=== PATIENT | female | born 1985 | race Two or more races ===

== ENCOUNTER 2016-10-08 02:24 | Emergency (ER) | payer MEDICARE, MEDICAID ==
[2016-10-08] MEDS ORDERED: Ondansetron 8 MG Tab.DIS PO ONE (05:25)
[2016-10-08 05:53] VITALS: BP 131/90
--- NOTE | 2016-10-09 11:00 | ER ---
DATE SEEN: 10/08/2016 TIME SEEN: The patient was seen at 0224 hours. CHIEF COMPLAINT: Seizure. HISTORY OF PRESENT ILLNESS: This is a 30-year-old, (2 to 3 months ago) woman, who 2 hours ago was noted to have fallen to the floor with a large thud and noted by her , who came into the room, to have had seizures with tonic/clonic motion at home. She had mild neck discomfort. She had moderate headache. She was talking. Seizure lasted 35 to 45 seconds per (rule out vasovagal event) . She did not bite her tongue, but she lost urine. She is a 11, para 7-4- 0-7. Followed by Dr. Morrison at [place], and she has appointment with her circuit rider, thyroidologist, Dr. Alejandro at [facility] on 10/12/2016. She lives in [place] with her . On 10/03/2016, she had an MRI. This was read as "Chiari I malformation with low - lying cerebellar tonsils, which extend below the level of the foramen magnum. This is consistent with a Chiari I malformation." PAST MEDICAL HISTORY: Diabetes, decreased hearing, smokes. Drinks alcohol. Weight is 288 pounds, obese. She has had headaches for the past 2 weeks. She describes, for the last 2 to 3 days, it has been 10/10. She has used Aleve and Tylenol without relief. She has now associated photophobia, recent migraines, and she has had those on and off. Has moderate photophobia this evening. She has had on and off dysesthesias of left upper and lower extremities. This is the first time she ever had a seizure. notes she has had intermittent twitching in the ED, which I did not see. She described a recent intermittent cough. She also describes having history of double vision on and off for the past month, persistent headache, and chronic low back pain and neck pain, with some difficulty more recently with walking. 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 PHYSICAL EXAMINATION: GENERAL: Obese woman, who is in mild distress. Marked photophobia, has a towel over her eyes because of photophobia. Hearing is appropriate. She denies hearing sensitivity. Has mild neck stiffness. A soft collar was placed to stabilize her neck. HEENT: PERRLA intact. She has marked photosensitivity. Pupils react to light, 3 down to 2 mm. Lights are off in the room. Otherwise, hearing is intact. Pharynx appropriate. Gag appropriate. No tongue lacerations, lip or oral mucosa lacerations. NECK: Mild tenderness posterior paraspinal muscle discomfort. No anterior neck discomfort or tracheal deviation. LUNGS: Clear to auscultation without rales, rhonchi, or wheezes. HEART: S1, S2. No murmur. No irregular rate and rhythm. ABDOMEN: Soft. No guarding. No rebound. Increased abdominal girth noted. EXTREMITIES: Without abnormality. No pedal edema. Deep tendon reflexes upper and lower extremities hypoactive. NEUROLOGIC: Cranial nerves 2 through 12 intact. Oriented x3. No pronator drift. No weakness in upper and lower extremity muscle strength. No dysmetria and no speech difficulty. Memory appropriate. Thought content appropriate. IMAGING: CT of the head is negative. CT of the cervical spine is negative. There is no mention about the Chiari I malformation, but that was demonstrated on previous 10/03/2016 MRI, which I have a copy from the [facility]. [place] ASSESSMENT: 1. Seizure and/or vasovagal event. 2. Hypercalcemia. 3. Hypokalemia. 4. Anemia. 5. Hypothyroidism. 6. Obesity. 7. Chiari I malformation. 8. History of double vision, one month duration, suggests perhaps brainstem abnormality related to the Chiari I malformation, question may be recurring. 9. Seizure, etiology indeterminate. 10.Decreased hearing. 11.Marked obesity. I advised the patient that she needs to be transferred for further evaluation. Her preference is go to [facility]. did not want to have her go by ambulance. I felt it was against medical advice for him to transport her, because she could have a seizure in the interval distance of 250+ miles. He was very assertive and did not want to have her ride by ambulance, and he was willing to take the risk and responsibility, and if she had a seizure, he would manage it by stopping at a nearby hospital. The patient was transported without her soft collar. Case was discussed with Dr. Saenz, the family practice doctor on-call from [facility]. The patient's pressure came down. The patient's MRI report was faxed to Dr. Saenz. /[id number] RASHAUN/CHUCKY BUCKLEY
== END 2016-10-08 05:30 ==
LOC: FB.ED 02:24
DX: R56.9 Unspecified convulsions (principal); E83.52 Hypercalcemia; E87.6 Hypokalemia; D64.9 Anemia, unspecified; E03.9 Hypothyroidism, unspecified; E66.9 Obesity, unspecified; G93.5 Compression of brain
CPT/HCPCS: 36415; 70450; 72125; 80053; 83735; 85025; 93005; 99285; A9270; G0480; 99284

== ENCOUNTER 2017-04-30 22:58 | Emergency (ER) | payer MEDICARE, MEDICAID ==
[2017-04-30] MEDS ORDERED: Lactated Ringers 1,000 ML IV SCH (23:45)
[2017-05-01] MEDS ORDERED: Lactated Ringers 500 ML IV ONE (00:50)
[2017-05-01] MEDS ORDERED: Ketorolac 30 MG/ML SDV IVPUSH ONE (01:22)
[2017-05-01 02:32] VITALS: BP 140/81
--- NOTE | 2017-05-02 10:13 | ER ---
DATE SEEN: 04/30/2017 CHIEF COMPLAINT: Miscarriage. HISTORY OF PRESENT ILLNESS: This is a G11, P6. She presents because of vaginal bleeding that started like spotting earlier today, then progressed to large clots and with minimal cramping. She is changing a pad every hour or so. In addition, she feels lightheaded at times. She denies any fever or chills. She is approximately 11 weeks . PAST MEDICAL HISTORY: 1. Arnold-Chiari. 2. Seizures. 3. Migraine headaches. 4. Hypertension. ALLERGIES: Hydrocodone. PHYSICAL EXAMINATION: GENERAL: She is not in any cardiopulmonary distress. VITAL SIGNS: Initial heart rate was 109. She is afebrile. ABDOMEN: Soft and benign. CARDIOVASCULAR: Normal. CHEST: Clear. LABORATORY DATA: Hemoglobin initially was 11.7. IMPRESSION: Threatened miscarriage. PLAN: 1. I will obtain an hCG level, with a plan to repeat after two days. 2. 1.5 L of LR were given today. Her vital signs normalized and stabilized. I will discharge her home to have a pelvic ultrasound done in the morning and then come to the clinic in the afternoon. If symptoms get worse, to return to the emergency room. TIME SEEN: 0030 hours. /[id number] LORRIE/CHUCKY
== END 2017-05-01 01:40 | disposition home or self-care (01) ==
LOC: FB.ED 22:58
DX: O20.0 Threatened abortion (principal); O16.1 Unspecified maternal hypertension, first trimester; Z3A.11 11 weeks gestation of pregnancy; Z88.5 Allergy status to narcotic agent; O46.90 Antepartum hemorrhage, unspecified, unspecified trimester
CPT/HCPCS: 36415; 76815; 76817; 80048; 84702; 85025; 85610; 86850; 86900; 86901; 96360; 96361; 96372; 99283; J1885; J7120

== ENCOUNTER 2018-03-20 07:18 | Inpatient (IN) | payer OTHER, MEDICARE, MEDICAID ==
[2018-03-20] MEDS ORDERED: Misoprostol 25 MCG (1/4 of 100 MCG) Tab VAG ONE (07:25)
[2018-03-20] MEDS ORDERED: Sodium Chloride 0.9% 10 ML Syringe FLUSH PRN (11:47)
[2018-03-20] MEDS ORDERED: Lactated Ringers 1,000 ML IV SCH (12:00)
[2018-03-20] MEDS ORDERED: Nalbuphine 10 MG/1 ML Vial IM PRN (15:03)
[2018-03-20] MEDS ORDERED: diphenhydrAMINE 50 MG/ML SDV IVPUSH PRN (15:06)
[2018-03-20] MEDS ORDERED: Nalbuphine 10 MG/1 ML Vial IVPUSH PRN (15:43)
[2018-03-20] MEDS ORDERED: Scopolamine 1.5 MG Transdermal Patch ONE (17:21)
[2018-03-20] MEDS ORDERED: Scopolamine 1.5 MG Transdermal Patch TOP ONE (17:23)
--- NOTE | 2018-03-20 18:12 | PCM.LDHP ---
L&D History of Present Illness - General Date of Service: 03/20/18 Admit Problem/Dx: Patient Status Order with Admit Dx/Problem 03/20/18 07:23 Admission Status [Patient Status] [ADT] Routine 03/20/18 07:43 Admission Status [Patient Status] [ADT] Routine Admission Diagnosis/Problem Admission Diagnosis/Problem History Limitations: Reports: No Limitations - History of Present Illness Introduction:: Induction of labor due to GDM,and Gestational HTN.She is 37 and 1/2 weeks. Stable Hypothyroid,stable Bipolar,Obeseity,stable. Pain Score: 6 - Related Data Allergies/Adverse Reactions: Allergies Allergy/AdvReac Type Severity Reaction Status Date / Time hydrocodone [From Vicodin] Allergy Hives Verified 04/30/17 23:15 Home Medications: Home Meds Calcitriol [Rocaltrol] 0.5 mcg PO DAILY 04/30/17 [History] Calcium Carbonate [Calcium] 500 mg PO BID 04/30/17 [History] Ergocalciferol (Vitamin D2) [Vitamin D2] 50,000 units MO 04/30/17 [History] Levothyroxine 175 mcg PO ACBRK 04/30/17 [History] Vits #93/Iron Fum/FA [ Formula Tablet] 1 tab DAILY 04/30/17 [ History] Past Medical History HEENT History: Reports: Other (See Below) Other HEENT History: undetermined Cardiovascular History: Reports: Other (See Below) Other Cardiovascular History: hypertension 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 Neurological History: Reports: Migraines, Seizure Psychiatric History: Reports: Anxiety, Bipolar Endocrine/Metabolic History: Reports: Hypothyroidism, Vitamin D Deficiency Other Endocrine/Metabolic History: hx thyroid CA Oncologic (Cancer) History: Reports: Thyroid - Infectious Disease History Infectious Disease History: Reports: Chicken Pox - Past Surgical History Endocrine Surgical History: Reports: Thyroidectomy Neurological Surgical History: Reports: None Musculoskeletal Surgical History: Reports: None Social & Family History - Family History Family Medical History: Noncontributory - Tobacco Use Smoking Status *Q: Former Smoker Used Tobacco, but Quit: Yes Month/Year Tobacco Last Used: 07/14 Second Hand Smoke Exposure: No - Caffeine Use Caffeine Use: Reports: Coffee, Tea Other Caffeine Use: 1 cup/day - Recreational Drug Use Recreational Drug Use: No H&P Review of Systems - Review of Systems: Review Of Systems: ROS reveals no pertinent complaints other than HPI. L&D Exam - Exam Exam: See Below - Vital Signs Vital Signs: Last Vital Signs Temp 98.2 F 03/20/18 07:40 Pulse 72 03/20/18 08:38 Resp 16 03/20/18 07:40 BP 135/96 H 03/20/18 07:30 Pulse Ox 100 03/20/18 08:37 Weight: 132.449 kg - OB Specific Contraction Duration (sec): 40-60 Contraction Frequency (min): 2-5 Contraction Intensity: Moderate Movement: Active Heart Tones: Present Presentation: Left Occiput Anterior (CARMEN) - Merlos Score Merlos Score Cervix Position: Midposition - Exam General: Alert, Oriented HEENT: PERRLA, Conjunctiva Clear, EACs Clear, EOMI, Hearing Intact, Mucosa Moist & [place], Nares Patent, Normal Nasal Septum, Posterior Pharynx Clear, TMs Clear Neck: Supple, Trachea Midline Lungs: Clear to Auscultation, Normal Respiratory Effort Cardiovascular: Regular Rate, Regular Rhythm GI/Abdominal Exam: Normal Bowel Sounds, Soft, Non-Tender, No Organomegaly, No Distention, No Abnormal Bruit, No Mass, Pelvis Stable Rectal Exam: Normal Exam, Normal Rectal Tone Genitourinary: Normal external exam, Normal bimanual exam, Normal speculum exam Back Exam: Normal Inspection, Full Range of Motion Extremities: Normal Inspection, Normal Range of Motion, Non-Tender, No Pedal Edema, Normal Capillary Refill Skin: Warm, Dry, Intact Neurological: Cranial Nerves Intact, Reflexes Equal Bilateral Psychiatric: Alert, Normal Affect, Normal Mood - Problem List (1) Encounter for elective induction of labor SNOMED Code(s): 907759999 ICD Code: Z34.90 - ENCNTR FOR SUPRVSN OF NORMAL , UNSP, UNSP TRIMESTER Status: Acute Current Visit: Yes (2) Gestational HTN SNOMED Code(s): 281029590, 245712194 ICD Code: O13.9 - GESTATIONAL HTN W/O SIGNIFICANT PROTEINURIA, UNSP TRIMESTER Status: Acute Current Visit: Yes Qualifiers: Trimester: third trimester Qualified Code(s): O13.3 - Gestational [ -induced] hypertension without significant proteinuria, third trimester (3) Gestational diabetes SNOMED Code(s): 36189718 ICD Code: O24.419 - GESTATIONAL DIABETES MELLITUS IN , UNSP CONTROL Status: Acute Current Visit: Yes Qualifiers: Gestational diabetes mellitus control: insulin-controlled (4) SNOMED Code(s): 88736858 ICD Code: Z34.90 - ENCNTR FOR SUPRVSN OF NORMAL , UNSP, UNSP TRIMESTER Status: Acute Current Visit: Yes Qualifiers: Weeks of gestation: 37 weeks Qualified Code(s): Z3A.37 - 37 weeks gestation of (5) Obesity affecting SNOMED Code(s): 284940903853 ICD Code: O99.210 - OBESITY COMPLICATING , UNSPECIFIED TRIMESTER Status: Acute Current Visit: Yes Qualifiers: Trimester: third trimester Qualified Code(s): O99.213 - Obesity complicating , third trimester (6) Grand multipara in labor SNOMED Code(s): 133597535 ICD Code: O09.40 - SUPERVISION OF W GRAND MULTIPARITY, UNSP TRIMESTER Status: Acute Current Visit: Yes (7) Bipolar affective SNOMED Code(s): 39432751 ICD Code: F31.9 - BIPOLAR DISORDER, UNSPECIFIED Status: Acute Current Visit: Yes Qualifiers: Active/Remission status: currently active (8) Hypothyroid in , antepartum SNOMED Code(s): 115283754 ICD Code: O99.280 - ENDO, NUTRITIONAL AND METAB DISEASES COMP PREG, UNSP TRI ; E03.9 - HYPOTHYROIDISM, UNSPECIFIED Status: Acute Current Visit: Yes (9) Hypocalcemia SNOMED Code(s): 6451290 ICD Code: E83.51 - HYPOCALCEMIA Status: Acute Current Visit: Yes (10) Arnold-Chiari malformation, type I Status: Acute Current Visit: Yes Problem List Initiated/Reviewed/Updated: Yes Orders Last 24hrs: Active Orders 24 hr Category Date Time Status Admission Status [Patient Status] [ADT] Routine ADT 03/20/18 07:43 Active Communication Order [RC] ASDIRECTED Care 03/20/18 11:47 Active Communication Order [RC] ASDIRECTED Care 03/20/18 11:47 Active Communication Order [RC] ASDIRECTED Care 03/20/18 11:47 Active Communication Order [RC] ASDIRECTED Care 03/20/18 11:47 Active Non Stress Test [RC] Click to Edit Care 03/20/18 11:47 Active Notify Provider [RC] PRN Care 03/20/18 11:47 Active Notify Provider [RC] STAT Care 03/20/18 11:47 Active Pump Management, Intrathecal [RC] ASDIRECTED Care 03/20/18 17:24 Active Vital Signs [RC] PER UNIT ROUTINE Care 03/20/18 11:47 Active Lactated Ringers [Ringers, Lactated] 1,000 ml Med 03/20/18 12:00 Active IV ASDIRECTED Nalbuphine [Nubain] Med 03/20/18 15:43 Active 10 mg IVPUSH Q3H PRN Oxytocin/Normal Saline [Pitocin in NS 20 Units/1,000 ML Med 03/20/18 12:00 Active ] 20 unit in 1,000 ml IV TITRATE Sodium Chloride 0.9% [Saline Flush] Med 03/20/18 11:47 Active 10 ml FLUSH ASDIRECTED PRN diphenhydrAMINE [Benadryl] Med 03/20/18 15:06 Active 50 mg IVPUSH Q4H PRN Peripheral IV Insertion Adult [OM.PC] Routine Oth 03/20/18 11:47 Ordered Code Status [Resuscitation Status] Routine Resus Stat 03/20/18 09:12 Ordered Medication Orders Diphenhydramine HCl (Benadryl) 50 mg IVPUSH Q4H PRN PRN Reason: Rash Oxytocin/Sodium Chloride (Pitocin In Ns 20 Units/1,000 Ml) 20 unit in 1,000 mls @ 6 mls/hr IV TITRATE TEE; Protocol Last Titration: 03/20/18 14:30 Dose: 4 munits/min, 12 mls/hr Admin: 03/20/18 14:03 Dose: 2 munits/min, 6 mls/hr Lactated Ringer's (Ringers, Lactated) 1,000 mls @ 125 mls/hr IV ASDIRECTED TEE Last Admin: 03/20/18 14:00 Dose: 125 mls/hr Nalbuphine HCl (Nubain) 10 mg IVPUSH Q3H PRN PRN Reason: Pain Last Admin: 03/20/18 15:30 Dose: 10 mg Sodium Chloride (Saline Flush) 10 ml FLUSH ASDIRECTED PRN PRN Reason: Keep Vein Open Last Admin: 03/20/18 14:00 Dose: 10 ml Assessment/Plan Comment:: Induce labor by Cytotec.Accucheck PRN.Watch BP
--- NOTE | 2018-03-20 18:39 | PCM.DEL ---
L & D Note - General Info Date of Service: 03/20/18 Mother's Due Date: 04/08/18 - Delivery Note Labor: Spontaneous, Augmented by Oxytocin, Induced by Oxytocin Cervical Ripening Method: Misoprostil Delivery Outcome: Livebirth Delivery Mode: Spontaneous Presentation: Left Occiput Anterior (CARMEN) Nuchal Cord: Present Prep: Povidone-Iodine (Betadine Episiotomy Type: None Cord: 3 Vessels Estimated Blood Loss: 250 Resuscitation Needed: No Mcclellan: Bulb Syringe, Stimulated, Warmed Induction Criteria - Merlos Score Merlos Score Dilation: 1-2 cm Merlos Score Effacement: 60-70% Merlos Score 's Station: -2 Merlos Score Consistency: Medium Merlos Score Cervix Position: Midposition Merlos Score Total: 6 Merlos Score Presenting Part: Reports: Cephalic - Induction Gestational Age >/= 39 wks: No Medical Indication: GDM,Gestational HTN Estimated Pelvis: Reports: Adequate Reassuring Monitoring Strip: Yes Absence of Tachy Systole: Yes - Augmentation Estimated Pelvis: Reports: Adequate Reassuring Monitoring Strip: Yes Absence of Tachy Systole: Yes - General Info Date of Service: 03/20/18 Admission Dx/Problem (Free Text): Patient Status Order with Admit Dx/Problem 03/20/18 07:23 Admission Status [Patient Status] [ADT] Routine 03/20/18 07:43 Admission Status [Patient Status] [ADT] Routine Admission Diagnosis/Problem Admission Diagnosis/Problem Functional Status: Reports: Pain Controlled, Tolerating Diet - Review of Systems General: Reports: No Symptoms HEENT: Reports: No Symptoms Pulmonary: Reports: No Symptoms Cardiovascular: Reports: No Symptoms Gastrointestinal: Reports: No Symptoms Genitourinary: Reports: No Symptoms Musculoskeletal: Reports: No Symptoms Skin: Reports: No Symptoms Neurological: Reports: No Symptoms Psychiatric: Reports: No Symptoms - Patient Data Vitals - Most Recent: Last Vital Signs Temp 98.2 F 03/20/18 07:40 Pulse 72 03/20/18 08:38 Resp 16 03/20/18 07:40 BP 135/96 H 03/20/18 07:30 Pulse Ox 100 03/20/18 08:37 Weight - Most Recent: 132.449 kg Med Orders - Current: Current Medications Diphenhydramine HCl (Benadryl) 50 mg IVPUSH Q4H PRN PRN Reason: Rash Oxytocin/Sodium Chloride (Pitocin In Ns 20 Units/1,000 Ml) 20 unit in 1,000 mls @ 6 mls/hr IV TITRATE TEE; Protocol Last Titration: 03/20/18 14:30 Dose: 4 munits/min, 12 mls/hr Lactated Ringer's (Ringers, Lactated) 1,000 mls @ 125 mls/hr IV ASDIRECTED TEE Last Admin: 03/20/18 14:00 Dose: 125 mls/hr Nalbuphine HCl (Nubain) 10 mg IVPUSH Q3H PRN PRN Reason: Pain Last Admin: 03/20/18 15:30 Dose: 10 mg Sodium Chloride (Saline Flush) 10 ml FLUSH ASDIRECTED PRN PRN Reason: Keep Vein Open Last Admin: 03/20/18 14:00 Dose: 10 ml Discontinued Medications Misoprostol (Cytotec) 25 mcg VAG ONETIME ONE Stop: 03/20/18 07:26 Last Admin: 03/20/18 08:02 Dose: 25 mcg Scopolamine (Transderm-Scop) Confirm Administered Dose 1.5 mg .ROUTE .STK-MED ONE Stop: 03/20/18 17:22 Scopolamine (Transderm-Scop) 1.5 mg TOP ONETIME ONE Stop: 03/20/18 17:24 - Exam General: Alert, Oriented HEENT: Pupils Equal, Pupils Reactive, EOMI, Mucous Membr. Moist/[place] Neck: Supple Lungs: Clear to Auscultation, Normal Respiratory Effort Cardiovascular: Regular Rate, Regular Rhythm GI/Abdominal Exam: Normal Bowel Sounds, Soft, Non-Tender, No Organomegaly, No Distention, No Abnormal Bruit, No Mass, Pelvis Stable (Female) Exam: Normal External Exam, Normal Speculum Exam, Normal Bimanual Exam Back Exam: Normal Inspection, Full Range of Motion Extremities: Normal Inspection, Normal Range of Motion, Non-Tender, No Pedal Edema, Normal Capillary Refill Skin: Warm, Dry, Intact Wound/Incisions: Healing Well Neurological: No New Focal Deficit Psy/Mental Status: Alert, Normal Affect, Normal Mood - Problem List & Annotations (1) Encounter for elective induction of labor SNOMED Code(s): 790154875 Code(s): Z34.90 - ENCNTR FOR SUPRVSN OF NORMAL , UNSP, UNSP TRIMESTER Status: Acute Current Visit: Yes (2) Gestational HTN SNOMED Code(s): 400987807, 219363053 Code(s): O13.9 - GESTATIONAL HTN W/O SIGNIFICANT PROTEINURIA, UNSP TRIMESTER Status: Acute Current Visit: Yes Qualifiers: Trimester: third trimester Qualified Code(s): O13.3 - Gestational [ -induced] hypertension without significant proteinuria, third trimester (3) Gestational diabetes SNOMED Code(s): 36202403 Code(s): O24.419 - GESTATIONAL DIABETES MELLITUS IN , UNSP CONTROL Status: Acute Current Visit: Yes Qualifiers: Gestational diabetes mellitus control: insulin-controlled (4) SNOMED Code(s): 51486044 Code(s): Z34.90 - ENCNTR FOR SUPRVSN OF NORMAL , UNSP, UNSP TRIMESTER Status: Acute Current Visit: Yes Qualifiers: Weeks of gestation: 37 weeks Qualified Code(s): Z3A.37 - 37 weeks gestation of (5) Obesity affecting SNOMED Code(s): 205628710084 Code(s): O99.210 - OBESITY COMPLICATING , UNSPECIFIED TRIMESTER Status: Acute Current Visit: Yes Qualifiers: Trimester: third trimester Qualified Code(s): O99.213 - Obesity complicating , third trimester (6) Grand multipara in labor SNOMED Code(s): 851507040 Code(s): O09.40 - SUPERVISION OF W GRAND MULTIPARITY, UNSP TRIMESTER Status: Acute Current Visit: Yes (7) Bipolar affective SNOMED Code(s): 96104069 Code(s): F31.9 - BIPOLAR DISORDER, UNSPECIFIED Status: Acute Current Visit: Yes Qualifiers: Active/Remission status: currently active (8) Hypothyroid in , antepartum SNOMED Code(s): 699636283 Code(s): O99.280 - ENDO, NUTRITIONAL AND METAB DISEASES COMP PREG, UNSP TRI; E03.9 - HYPOTHYROIDISM, UNSPECIFIED Status: Acute Current Visit: Yes (9) Hypocalcemia SNOMED Code(s): 5588738 Code(s): E83.51 - HYPOCALCEMIA Status: Acute Current Visit: Yes (10) Arnold-Chiari malformation, type I Status: Acute Current Visit: Yes (11) Normal delivery SNOMED Code(s): 26594759, 802073752 Code(s): O80 - ENCOUNTER FOR FULL-TERM UNCOMPLICATED DELIVERY Status: Acute Current Visit: Yes - Problem List Review Problem List Initiated/Reviewed/Updated: Yes - My Orders Last 24 Hours: My Active Orders 03/20/18 07:43 Admission Status [Patient Status] [ADT] Routine 03/20/18 09:12 Code Status [Resuscitation Status] Routine 03/20/18 11:47 Communication Order [RC] ASDIRECTED Communication Order [RC] ASDIRECTED Communication Order [RC] ASDIRECTED Communication Order [RC] ASDIRECTED Non Stress Test [RC] Click to Edit Notify Provider [RC] PRN Notify Provider [RC] STAT Vital Signs [RC] PER UNIT ROUTINE Sodium Chloride 0.9% [Saline Flush] 10 ml FLUSH ASDIRECTED PRN Peripheral IV Insertion Adult [OM.PC] Routine 03/20/18 12:00 Lactated Ringers [Ringers, Lactated] 1,000 ml IV ASDIRECTED Oxytocin/Normal Saline [Pitocin in NS 20 Units/1,000 ML] 20 unit in 1,000 ml IV TITRATE 03/20/18 15:06 diphenhydrAMINE [Benadryl] 50 mg IVPUSH Q4H PRN 03/20/18 15:43 Nalbuphine [Nubain] 10 mg IVPUSH Q3H PRN 03/20/18 17:24 Pump Management, Intrathecal [RC] ASDIRECTED - Plan Plan:: Routine Care
[2018-03-20] MEDS: Ibuprofen 800 MG Tab PO PRN (19:30)
[2018-03-20] MEDS ORDERED: Calcium Carbonate 500 MG Tab.Chew PO SCH (21:00)
[2018-03-21] MEDS: Ibuprofen 800 MG Tab PO PRN ×3 (01:07→12:30)
[2018-03-21] MEDS ORDERED: Calcium Carbonate/Vitamin D3 1250 MG-200 Unit Tab PO SCH (09:00)
[2018-03-21] MEDS ORDERED: Calcitriol 0.25 MCG Cap PO SCH (09:00)
[2018-03-21] MEDS ORDERED: Prenatal Multivitamin with Calcium/Folic Acid/Fe Fumarate Cap PO SCH (09:00)
[2018-03-21 10:48] VITALS: BP 129/66
--- NOTE | 2018-03-21 12:34 | PCM.PNPP ---
- General Info Date of Service: 03/21/18 Admission Dx/Problem (Free Text): Doing well. Breast feeding - Review of Systems General: Reports: No Symptoms HEENT: Reports: No Symptoms Pulmonary: Reports: No Symptoms Cardiovascular: Reports: No Symptoms Gastrointestinal: Reports: No Symptoms Genitourinary: Reports: No Symptoms Musculoskeletal: Reports: No Symptoms Skin: Reports: No Symptoms Neurological: Reports: No Symptoms Psychiatric: Reports: No Symptoms - General Info Date of Service: 03/21/18 - Patient Data Vital Signs - Most Recent: Last Vital Signs Temp 98.0 F 03/21/18 09:45 Pulse 71 03/21/18 09:45 Resp 20 03/21/18 09:45 BP 129/66 03/21/18 09:45 Pulse Ox 100 03/21/18 09:45 Weight - Most Recent: 132.449 kg Lab Results - Last 24 Hours: Laboratory Results - last 24 hr 03/21/18 Range/Units 07:50 WBC 7.8 (4.5-12.0) X10-3/uL RBC 3.65 (3.23-5.20) x10(6)uL Hgb 10.4 L (11.5-15.5) g/dL Hct 30.6 (30.0-51.3) % MCV 83.9 (80-96) fL MCH 28.5 (27.7-33.6) pg MCHC 34.0 (32.2-35.4) g/dL RDW 14.2 (11.5-15.5) % Plt Count 231 (125-369) X10(3)uL MPV 8.1 (7.4-10.4) fL Neut % (Auto) 64.6 (46-82) % Lymph % (Auto) 26.6 (13-37) % [place] % (Auto) 6.8 (4-12) % Eos % (Auto) 2 (1.0-5.0) % Baso % (Auto) 0 (0-2) % Neut # (Auto) 5.1 (1.6-8.3) # Lymph # (Auto) 2.1 (0.6-5.0) # [place] # (Auto) 0.5 (0.0-1.3) # Eos # (Auto) 0.1 (0.0-0.8) # Baso # (Auto) 0.0 (0.0-0.2) # Med Orders - Current: Current Medications Calcitriol (Rocaltrol) 0.5 mcg PO DAILY [facility] Last Admin: 03/21/18 09:45 Dose: 0.5 mcg Calcium Carbonate (Calcium Carbonate/Vitamin D 1250 Mg-200 Unit) 1 tab PO BID [facility] Last Admin: 03/21/18 09:45 Dose: 1 tab Diphenhydramine HCl (Benadryl) 50 mg IVPUSH Q4H PRN PRN Reason: Rash Ergocalciferol (Vitamin D2) 50,000 units PO MO TEE Oxytocin/Sodium Chloride (Pitocin In Ns 20 Units/1,000 Ml) 20 unit in 1,000 mls @ 6 mls/hr IV TITRATE TEE; Protocol Last Titration: 03/20/18 14:30 Dose: 4 munits/min, 12 mls/hr Lactated Ringer's (Ringers, Lactated) 1,000 mls @ 125 mls/hr IV ASDIRECTED [facility] Last Admin: 03/20/18 14:00 Dose: 125 mls/hr Ibuprofen (Motrin) 800 mg PO Q4H PRN PRN Reason: Pain Last Admin: 03/21/18 12:30 Dose: 800 mg Levothyroxine Sodium (Levothyroxine) 200 mcg PO DAILY@0600 [facility] Last Admin: 03/21/18 09:45 Dose: 200 mcg Nalbuphine HCl (Nubain) 10 mg IVPUSH Q3H PRN PRN Reason: Pain Last Admin: 03/20/18 15:30 Dose: 10 mg Multivit/Folic Acid/Iron (-U) 1 each PO DAILY [facility] Last Admin: 03/21/18 09:45 Dose: 1 each Sodium Chloride (Saline Flush) 10 ml FLUSH ASDIRECTED PRN PRN Reason: Keep Vein Open Last Admin: 03/20/18 14:00 Dose: 10 ml Discontinued Medications Calcium Carbonate/Glycine (Tums) 500 mg PO BID [facility] Last Admin: 03/20/18 23:54 Dose: Not Given Misoprostol (Cytotec) 25 mcg VAG ONETIME ONE Stop: 03/20/18 07:26 Last Admin: 03/20/18 08:02 Dose: 25 mcg Scopolamine (Transderm-Scop) Confirm Administered Dose 1.5 mg .ROUTE .STK-MED ONE Stop: 03/20/18 17:22 Last Admin: 03/20/18 19:41 Dose: Not Given Scopolamine (Transderm-Scop) 1.5 mg TOP ONETIME ONE Stop: 03/20/18 17:24 Last Admin: 03/20/18 19:41 Dose: Not Given - Infant Interaction Disposition, : in Room with Family Infant Interaction: Holding Infant Feeding: Attempted ; Nursed Fair/Poor Support Person: , Other (see below) - Recovery Exam Fundal Tone: Firm Fundal Level: At Umbilicus Fundal Placement: Midline Lochia Amount: Small Lochia Color: Rubra/Red Perineum Description: Intact, Minimal Bruising/Swelling Episiotomy/Laceration: None Bladder Status: Voiding - Exam General: Alert, Oriented HEENT: Pupils Equal Neck: Supple Lungs: Clear to Auscultation, Normal Respiratory Effort Cardiovascular: Regular Rate, Regular Rhythm GI/Abdominal Exam: Normal Bowel Sounds, Soft, Non-Tender, No Organomegaly, No Distention, No Abnormal Bruit, No Mass, Pelvis Stable Extremities: Normal Inspection, Normal Range of Motion, Non-Tender, No Pedal Edema, Normal Capillary Refill Skin: Warm, Dry, Intact Wound/Incisions: Healing Well Neurological: No New Focal Deficit Psy/Mental Status: Alert, Normal Affect, Normal Mood - Problem List & Annotations (1) Encounter for elective induction of labor SNOMED Code(s): 669462692 Code(s): Z34.90 - ENCNTR FOR SUPRVSN OF NORMAL , UNSP, UNSP TRIMESTER Status: Acute Current Visit: Yes (2) Gestational HTN SNOMED Code(s): 790935228, 142408092 Code(s): O13.9 - GESTATIONAL HTN W/O SIGNIFICANT PROTEINURIA, UNSP TRIMESTER Status: Acute Current Visit: Yes Qualifiers: Trimester: third trimester Qualified Code(s): O13.3 - Gestational [ -induced] hypertension without significant proteinuria, third trimester (3) Gestational diabetes SNOMED Code(s): 54282413 Code(s): O24.419 - GESTATIONAL DIABETES MELLITUS IN , UNSP CONTROL Status: Acute Current Visit: Yes Qualifiers: Gestational diabetes mellitus control: insulin-controlled (4) SNOMED Code(s): 25855628 Code(s): Z34.90 - ENCNTR FOR SUPRVSN OF NORMAL , UNSP, UNSP TRIMESTER Status: Acute Current Visit: Yes Qualifiers: Weeks of gestation: 37 weeks Qualified Code(s): Z3A.37 - 37 weeks gestation of (5) Obesity affecting SNOMED Code(s): 314422111206 Code(s): O99.210 - OBESITY COMPLICATING , UNSPECIFIED TRIMESTER Status: Acute Current Visit: Yes Qualifiers: Trimester: third trimester Qualified Code(s): O99.213 - Obesity complicating , third trimester (6) Grand multipara in labor SNOMED Code(s): 289580852 Code(s): O09.40 - SUPERVISION OF W GRAND MULTIPARITY, UNSP TRIMESTER Status: Acute Current Visit: Yes (7) Bipolar affective SNOMED Code(s): 56598877 Code(s): F31.9 - BIPOLAR DISORDER, UNSPECIFIED Status: Acute Current Visit: Yes Qualifiers: Active/Remission status: currently active (8) Hypothyroid in , antepartum SNOMED Code(s): 106185966 Code(s): O99.280 - ENDO, NUTRITIONAL AND METAB DISEASES COMP PREG, UNSP TRI; E03.9 - HYPOTHYROIDISM, UNSPECIFIED Status: Acute Current Visit: Yes (9) Hypocalcemia SNOMED Code(s): 2102466 Code(s): E83.51 - HYPOCALCEMIA Status: Acute Current Visit: Yes (10) Arnold-Chiari malformation, type I Status: Acute Current Visit: Yes (11) Normal delivery SNOMED Code(s): 71980537, 879899302 Code(s): O80 - ENCOUNTER FOR FULL-TERM UNCOMPLICATED DELIVERY Status: Acute Current Visit: Yes (12) care and examination SNOMED Code(s): 850223870, 945658947, 733017536 Code(s): Z39.2 - ENCOUNTER FOR ROUTINE FOLLOW-UP Status: Acute Current Visit: Yes - Problem List Review Problem List Initiated/Reviewed/Updated: Yes - My Orders Last 24 Hours: My Active Orders 03/20/18 11:47 Sodium Chloride 0.9% [Saline Flush] 10 ml FLUSH ASDIRECTED PRN Peripheral IV Insertion Adult [OM.PC] Routine 03/20/18 12:00 Lactated Ringers [Ringers, Lactated] 1,000 ml IV ASDIRECTED Oxytocin/Normal Saline [Pitocin in NS 20 Units/1,000 ML] 20 unit in 1,000 ml IV TITRATE 03/20/18 15:06 diphenhydrAMINE [Benadryl] 50 mg IVPUSH Q4H PRN 03/20/18 15:43 Nalbuphine [Nubain] 10 mg IVPUSH Q3H PRN 03/20/18 17:30 Admission Status [Patient Status] [ADT] Routine 03/20/18 18:39 May Shower [RC] ASDIRECTED Vital Signs [RC] PFP Ibuprofen [Motrin] 800 mg PO Q4H PRN Assess Lochia [WOMSER] Per Unit Routine Assess Uterine Involution [WOMSER] Per Unit Routine Perineal Care [OM.PC] Per Unit Routine Sitz Bath [OM.PC] Per Unit Routine 03/20/18 18:50 Convert IV to Saline Lock [OM.PC] Routine 03/21/18 09:00 Calcitriol [Rocaltrol] 0.5 mcg PO DAILY Calcium Carbonate/Vitamin D3 [Calcium Carbonate/Vitamin D 1250 MG-200 Unit] 1 tab PO BID Levothyroxine 200 mcg PO DAILY@0600 Vit/FA/Fe Fumarate [-U] 1 each PO DAILY 03/24/18 09:00 Ergocalciferol (Vitamin D2) [Vitamin D2] 50,000 units PO MO - Plan Plan:: She wants to go home today. Will discharge later tonight,and follow up next week. Will need A1C 6 weeks
--- NOTE | 2018-03-22 19:03 | PCM.DCSUM1 ---
Discharge Summary - Hospital Course Free Text/Narrative:: Induced due to GDM and Gest HTN.Post doing well. Diagnosis: Stroke: No - Discharge Data Discharge Date: 03/21/18 Discharge Disposition: Home, Self-Care 01 Condition: Good - Discharge Diagnosis/Problem(s) (1) Encounter for elective induction of labor SNOMED Code(s): 559335646 ICD Code: Z34.90 - ENCNTR FOR SUPRVSN OF NORMAL , UNSP, UNSP TRIMESTER Status: Acute (2) Gestational HTN SNOMED Code(s): 847742336, 524391132 ICD Code: O13.9 - GESTATIONAL HTN W/O SIGNIFICANT PROTEINURIA, UNSP TRIMESTER Status: Acute Qualifiers: Trimester: third trimester Qualified Code(s): O13.3 - Gestational [ -induced] hypertension without significant proteinuria, third trimester (3) Gestational diabetes SNOMED Code(s): 84073491 ICD Code: O24.419 - GESTATIONAL DIABETES MELLITUS IN , UNSP CONTROL Status: Acute Qualifiers: Gestational diabetes mellitus control: insulin-controlled (4) SNOMED Code(s): 27087236 ICD Code: Z34.90 - ENCNTR FOR SUPRVSN OF NORMAL , UNSP, UNSP TRIMESTER Status: Acute Qualifiers: Weeks of gestation: 37 weeks Qualified Code(s): Z3A.37 - 37 weeks gestation of (5) Obesity affecting SNOMED Code(s): 782257793299 ICD Code: O99.210 - OBESITY COMPLICATING , UNSPECIFIED TRIMESTER Status: Acute Qualifiers: Trimester: third trimester Qualified Code(s): O99.213 - Obesity complicating , third trimester (6) Grand multipara in labor SNOMED Code(s): 191920114 ICD Code: O09.40 - SUPERVISION OF W GRAND MULTIPARITY, UNSP TRIMESTER Status: Acute (7) Bipolar affective SNOMED Code(s): 04440700 ICD Code: F31.9 - BIPOLAR DISORDER, UNSPECIFIED Status: Acute Qualifiers: Active/Remission status: currently active (8) Hypothyroid in , antepartum SNOMED Code(s): 597136802 ICD Code: O99.280 - ENDO, NUTRITIONAL AND METAB DISEASES COMP PREG, UNSP TRI ; E03.9 - HYPOTHYROIDISM, UNSPECIFIED Status: Acute (9) Hypocalcemia SNOMED Code(s): 9021662 ICD Code: E83.51 - HYPOCALCEMIA Status: Acute (10) Arnold-Chiari malformation, type I Status: Acute (11) Normal delivery SNOMED Code(s): 38542187, 264592312 ICD Code: O80 - ENCOUNTER FOR FULL-TERM UNCOMPLICATED DELIVERY Status: Acute (12) care and examination SNOMED Code(s): 771599948, 681016513, 569776619 ICD Code: Z39.2 - ENCOUNTER FOR ROUTINE FOLLOW-UP Status: Acute - Discharge Plan Home Medications: Home Meds Calcitriol [Rocaltrol] 0.5 mcg PO DAILY 04/30/17 [History] Calcium Carbonate [Calcium] 500 mg PO BID 04/30/17 [History] Ergocalciferol (Vitamin D2) [Vitamin D2] 50,000 units MO 04/30/17 [History] Vits #93/Iron Fum/FA [ Formula Tablet] 1 tab DAILY 04/30/17 [ History] Levothyroxine 200 mcg PO DAILY 03/21/18 [History] Patient Handouts: , Baby Blues, Hand Washing, Easy-to- Read, Home Care Instructions for Mom, Vaginal Delivery, Care After Referrals: Bradley Florentino MD [Primary Care Provider] - (Please followup with me in 6 weeks. ) - General Info Date of Service: 03/21/18 Functional Status: Reports: Pain Controlled - Patient Data Vitals - Most Recent: Last Vital Signs Temp 98.0 F 03/21/18 09:45 Pulse 71 03/21/18 09:45 Resp 20 03/21/18 09:45 BP 129/66 03/21/18 09:45 Pulse Ox 100 03/21/18 09:45 Weight - Most Recent: 132.449 kg Med Orders - Current: Current Medications Discontinued Medications Calcitriol (Rocaltrol) 0.5 mcg PO DAILY [facility] Last Admin: 03/21/18 09:45 Dose: 0.5 mcg Calcium Carbonate (Calcium Carbonate/Vitamin D 1250 Mg-200 Unit) 1 tab PO BID [facility] Last Admin: 03/21/18 09:45 Dose: 1 tab Calcium Carbonate/Glycine (Tums) 500 mg PO BID [facility] Last Admin: 03/20/18 23:54 Dose: Not Given Diphenhydramine HCl (Benadryl) 50 mg IVPUSH Q4H PRN PRN Reason: Rash Ergocalciferol (Vitamin D2) 50,000 units PO MO TEE Oxytocin/Sodium Chloride (Pitocin In Ns 20 Units/1,000 Ml) 20 unit in 1,000 mls @ 6 mls/hr IV TITRATE TEE; Protocol Last Titration: 03/20/18 14:30 Dose: 4 munits/min, 12 mls/hr Lactated Ringer's (Ringers, Lactated) 1,000 mls @ 125 mls/hr IV ASDIRECTED TEE Last Admin: 03/20/18 14:00 Dose: 125 mls/hr Ibuprofen (Motrin) 800 mg PO Q4H PRN PRN Reason: Pain Last Admin: 03/21/18 12:30 Dose: 800 mg Levothyroxine Sodium (Levothyroxine) 200 mcg PO DAILY@0600 [facility] Last Admin: 03/21/18 09:45 Dose: 200 mcg Misoprostol (Cytotec) 25 mcg VAG ONETIME ONE Stop: 03/20/18 07:26 Last Admin: 03/20/18 08:02 Dose: 25 mcg Nalbuphine HCl (Nubain) 10 mg IVPUSH Q3H PRN PRN Reason: Pain Last Admin: 03/20/18 15:30 Dose: 10 mg Multivit/Folic Acid/Iron (-U) 1 each PO DAILY [facility] Last Admin: 03/21/18 09:45 Dose: 1 each Scopolamine (Transderm-Scop) Confirm Administered Dose 1.5 mg .ROUTE .STK-MED ONE Stop: 03/20/18 17:22 Last Admin: 03/20/18 19:41 Dose: Not Given Scopolamine (Transderm-Scop) 1.5 mg TOP ONETIME ONE Stop: 03/20/18 17:24 Last Admin: 03/20/18 19:41 Dose: Not Given Sodium Chloride (Saline Flush) 10 ml FLUSH ASDIRECTED PRN PRN Reason: Keep Vein Open Last Admin: 03/20/18 14:00 Dose: 10 ml - Exam General: Reports: Alert, Oriented HEENT: Reports: Pupils Equal, Pupils Reactive, EOMI, Mucous Membr. Moist/[place] Neck: Reports: Supple Lungs: Reports: Clear to Auscultation, Normal Respiratory Effort Cardiovascular: Reports: Regular Rate, Regular Rhythm GI/Abdominal Exam: Normal Bowel Sounds, Soft, Non-Tender, No Organomegaly, No Distention, No Abnormal Bruit, No Mass, Pelvis Stable (Female) Exam: Normal External Exam, Normal Speculum Exam, Normal Bimanual Exam Rectal (Female) Exam: Normal Exam, Normal Rectal Tone Back Exam: Reports: Normal Inspection, Full Range of Motion Extremities: Normal Inspection, Normal Range of Motion, Non-Tender, No Pedal Edema, Normal Capillary Refill Skin: Reports: Warm, Dry, Intact Wound/Incisions: Reports: Healing Well Neurological: Reports: No New Focal Deficit Psy/Mental Status: Reports: Alert, Normal Affect, Normal Mood
[2018-03-24] MEDS ORDERED: Ergocalciferol (Vitamin D2) 50,000 Unit Cap PO SCH (09:00)
== END 2018-03-21 18:05 | disposition home or self-care (01) | DRG 775 ==
LOC: FB.OB 07:18 → OBSVTOIN 17:30
PROVIDERS: ADMIT Family Medicine; ATTEND Family Medicine
PROC: 10E0XZZ Delivery of Products of Conception, External Approach (ICD-10-PCS; principal; 2018-03-20)
PROC: 3E0P7VZ Introduction of Hormone into Female Reproductive, Via Natural or Artificial Opening (ICD-10-PCS; 2018-03-20)
DX: O24.424 Gestational diabetes mellitus in childbirth, insulin controlled (principal); G93.5 Compression of brain; O99.354 Diseases of the nervous system complicating childbirth; Z68.42 Body mass index [BMI] 45.0-49.9, adult; Z37.0 Single live birth; O13.4 Gestational [pregnancy-induced] hypertension without significant proteinuria, complicating childbirth; O99.214 Obesity complicating childbirth; O99.344 Other mental disorders complicating childbirth; Z3A.37 37 weeks gestation of pregnancy; F31.9 Bipolar disorder, unspecified; O99.284 Endocrine, nutritional and metabolic diseases complicating childbirth; E03.9 Hypothyroidism, unspecified; E83.51 Hypocalcemia; Z79.899 Other long term (current) drug therapy; E66.01 Morbid (severe) obesity due to excess calories; Z86.14 Personal history of Methicillin resistant Staphylococcus aureus infection; Z88.8 Allergy status to other drugs, medicaments and biological substances; Z87.891 Personal history of nicotine dependence; E55.9 Vitamin D deficiency, unspecified
CPT/HCPCS: 36415; 59409; 85025; A9270-GY; J2300; J2590; J7050; J7120

== ENCOUNTER 2018-10-29 22:10 | Emergency (ER) | payer OTHER, MEDICARE, MEDICAID ==
[2018-10-29] MEDS ORDERED: Meclizine 25 MG Tab PO ONE ×2 (22:11→23:54)
--- NOTE | 2018-10-29 22:49 | EDM.PDOC ---
ED HPI GENERAL MEDICAL PROBLEM - General Chief Complaint: Headache Stated Complaint: SICK TO HER STOMACH DIZZY FEELS LIKE PANIC ATTACK Time Seen by Provider: 10/29/18 22:10 Source of Information: Reports: Patient History Limitations: Reports: No Limitations - History of Present Illness INITIAL COMMENTS - FREE TEXT/NARRATIVE: 32 y.o.b. f with a H/O Arnold Chiari malformation, came to the ed because of insomnia and dizziness. Pt's mom is a nurse who thinks her daughter has vertigo. Pt said initially, her dizziness is getting worse when she she is turning her head to either side. No trauma. The symptoms are the same when she had issues with her Arnold Chiari malformation. Pt is scheduled for an MRI this Saturday. No N/V/D or any other acute medical issues. BP 132/81 Pulse 101, Temp 36.8 RR 17 Pulse ox 97% on RA Onset Date: 10/29/18 Onset Time: 11:00 Duration: Hour(s): Location: Reports: Head, Neck Quality: Reports: Ache, Burning, Dull, Same as Previous Episode Severity: Mild Improves with: Reports: Rest Worsens with: Reports: Movement Context: Reports: Other (H/O Arnold Chiari malformation) Associated Symptoms: Reports: Headaches headache Pain Score (Numeric/FACES): 6 - Related Data Allergies Allergy/AdvReac Type Severity Reaction Status Date / Time hydrocodone [From Vicodin] Allergy Hives Verified 10/29/18 22:58 Home Meds: Home Meds Calcitriol [Rocaltrol] 0.5 mcg PO DAILY 04/30/17 [History] Calcium Carbonate [Calcium] 500 mg PO BID 04/30/17 [History] Levothyroxine 200 mcg PO DAILY 03/21/18 [History] Albuterol [Ventolin HFA] 1 puff .XX Q4HR #1 inhaler 05/11/18 [Rx] Cholecalciferol (Vitamin D3) [Vitamin D] 1,000 units PO DAILY 10/29/18 [History] Levothyroxine 25 mcg PO ACBREAKFAST 10/29/18 [History] Lisinopril/Hydrochlorothiazide [Lisinopril-Hctz 20-25 mg Tab] 1 tab PO DAILY 10/14 [History] Past Medical History HEENT History: Reports: Other (See Below) Other HEENT History: undetermined Cardiovascular History: Reports: Hypertension, Other (See Below) Other Cardiovascular History: hypertension with previous [employer] History: Reports: , Spontaneous Other [employer] History: [id number] Musculoskeletal History: Reports: Fracture Other Musculoskeletal History: fx L tibia & kneecap. Neurological History: Reports: Migraines, Seizure Psychiatric History: Reports: Anxiety, Bipolar Endocrine/Metabolic History: Reports: Hypothyroidism, Vitamin D Deficiency Other Endocrine/Metabolic History: hx thyroid CA Oncologic (Cancer) History: Reports: Thyroid - Infectious Disease History Infectious Disease History: Reports: Chicken Pox - Past Surgical History Endocrine Surgical History: Reports: Thyroidectomy Neurological Surgical History: Reports: None Musculoskeletal Surgical History: Reports: None Social & Family History - Family History Family Medical History: Noncontributory - Tobacco Use Smoking Status *Q: Former Smoker Used Tobacco, but Quit: Yes Month/Year Tobacco Last Used: 48 - Caffeine Use Caffeine Use: Reports: Coffee, Tea Other Caffeine Use: 1 cup/day ED ROS GENERAL - Review of Systems Review Of Systems: See Below Constitutional: Reports: No Symptoms HEENT: Reports: No Symptoms Respiratory: Reports: No Symptoms Cardiovascular: Reports: No Symptoms Endocrine: Reports: No Symptoms GI/Abdominal: Reports: No Symptoms : Reports: No Symptoms Musculoskeletal: Reports: No Symptoms Skin: Reports: No Symptoms Neurological: Reports: No Symptoms Psychiatric: Reports: No Symptoms Hematologic/Lymphatic: Reports: No Symptoms Immunologic: Reports: No Symptoms - Physical Exam Exam: See Below Exam Limited By: No Limitations General Appearance: Alert, WD/WN, Mild Distress Eye Exam: Bilateral Eye: Normal Inspection Ears: Normal External Exam, Normal Canal Nose: Normal Inspection, Normal Mucosa Throat/Mouth: Normal Inspection, Normal Lips, Normal Teeth, Normal Oropharynx, Normal Voice, No Airway Compromise Head Exam: Atraumatic, Normocephalic Neck: Normal Inspection, Supple, Non-Tender Respiratory/Chest: No Respiratory Distress, Lungs Clear, Normal Breath Sounds, No Accessory Muscle Use, Chest Non-Tender Cardiovascular: Normal Peripheral Pulses, Regular Rate, Rhythm, No Edema GI/Abdominal: Normal Bowel Sounds, Soft, Non-Tender, No Organomegaly, No Distention, No Abnormal Bruit, No Mass, Pelvis Stable (Female) Exam: Deferred Rectal (Female) Exam: Deferred Neuro Exam (Abbreviated): Alert, Oriented, CN II-XII Intact, Normal Cognition, Normal Gait, No Motor/Sensory Deficits Back Exam: Normal Inspection, Full Range of Motion Extremities: Normal Inspection, Normal Range of Motion, Non-Tender, No Pedal Edema, Normal Capillary Refill Psychiatric: Normal Affect, Normal Mood Skin Exam: Warm, Dry, Intact, Normal Color, No Rash Course - Vital Signs Text/Narrative:: 32 y.o.b. f with a H/O Arnold Chiari malformation, came to the ed because of insomnia and dizziness. Pt's mom is a nurse who thinks her daughter has vertigo. Pt said initially, her dizziness is getting worse when she she is turning her head to either side. No trauma. The symptoms are the same when she had issues with her Arnold Chiari malformation. Pt is scheduled for an MRI this Saturday. No N/V/D or any other acute medical issues. BP 132/81 Pulse 101, Temp 36.8 RR 17 Pulse ox 97% on RA PE: WNWD B F with dizziness and insomnia. no muscle weakness, no problem with coordination, no double vision. Mild pins ad needle feeling at her neck. Labs: CBC basically nl, BMP K 3.2 Ca 7.8 GFR 51 Imaging: CT head: New calcification 4.5 mm right frontal lob of brain Impression: H/O Arnold Chiari, Hypocalcemia, hypokalemia, new calcification at right frontal lobe, vertigo Tx: potassium, Antivert. Reexam: Dizziness subsided Plan: D/C with instructions 2.30 10/30/2018; Attempted to call pt at her given Phone #: No answer. Last Recorded V/S: Last Vital Signs Temp 36.7 C 10/30/18 00:05 Pulse 88 10/30/18 00:05 Resp 17 10/30/18 00:05 BP 133/68 10/30/18 00:05 Pulse Ox 95 10/30/18 00:05 - Orders/Labs/Meds Labs: Laboratory Tests 10/29/18 10/29/18 10/29/18 Range/Units 22:45 22:50 22:50 WBC 6.1 (4.5-12.0) X10-3/uL RBC 4.19 (3.23-5.20) x10(6)uL Hgb 12.1 (11.5-15.5) g/dL Hct 36.1 (30.0-51.3) % MCV 86.3 (80-96) fL MCH 28.8 (27.7-33.6) pg MCHC 33.4 (32.2-35.4) g/dL RDW 13.4 (11.5-15.5) % Plt Count 358 (125-369) X10(3)uL MPV 7.9 (7.4-10.4) fL Add Manual Diff Yes Neutrophils % (Manual) 34 L (46-82) % Lymphocytes % (Manual) 57 H (13-37) % Monocytes % (Manual) 8 (4-12) % Eosinophils % (Manual) 1 (0-5) % Sodium (135-145) mmol/L Potassium (3.5-5.3) mmol/L Chloride (100-110) mmol/L Carbon Dioxide (21-32) mmol/L BUN (7-18) mg/dL Creatinine (0.55-1.02) mg/dL Est Cr Clr Drug Dosing mL/min Estimated GFR (MDRD) (>60) BUN/Creatinine Ratio (9-20) Glucose (80-116) mg/dL Calcium (8.6-10.2) mg/dL Magnesium 2.0 (1.8-2.5) mg/dL Urine Color Yellow (YELLOW) Urine Appearance Clear (CLEAR) Urine pH 6.0 (5.0-6.5) Ur Specific [place] 1.020 (1.010-1.025) Urine Protein Negative (NEGATIVE) mg/dL Urine Glucose (UA) Normal (NORMAL) mg/dL Urine Ketones Negative (NEGATIVE) mg/dL Urine Occult Blood Negative (NEGATIVE) Urine Nitrite Negative (NEGATIVE) Urine Bilirubin Negative (NEGATIVE) Urine Urobilinogen Normal (NEGATIVE) mg/dL Ur Leukocyte Esterase Negative (NEGATIVE) Urine RBC 0-5 (0-5) Urine WBC 0-5 (0-5) Ur Squamous Epith Cells Moderate H (NS,R,O) Urine Bacteria Moderate H (NS) Urine Mucus Few H (NS) 10/29/18 Range/Units 22:50 WBC (4.5-12.0) X10-3/uL RBC (3.23-5.20) x10(6)uL Hgb (11.5-15.5) g/dL Hct (30.0-51.3) % MCV (80-96) fL MCH (27.7-33.6) pg MCHC (32.2-35.4) g/dL RDW (11.5-15.5) % Plt Count (125-369) X10(3)uL MPV (7.4-10.4) fL Add Manual Diff Neutrophils % (Manual) (46-82) % Lymphocytes % (Manual) (13-37) % Monocytes % (Manual) (4-12) % Eosinophils % (Manual) (0-5) % Sodium 140 (135-145) mmol/L Potassium 3.2 L (3.5-5.3) mmol/L Chloride 100 (100-110) mmol/L Carbon Dioxide 31 (21-32) mmol/L BUN 17 (7-18) mg/dL Creatinine 1.2 H (0.55-1.02) mg/dL Est Cr Clr Drug Dosing 59.44 mL/min Estimated GFR (MDRD) 51 L (>60) BUN/Creatinine Ratio 14.2 (9-20) Glucose 131 H (80-116) mg/dL Calcium 7.8 L (8.6-10.2) mg/dL Magnesium (1.8-2.5) mg/dL Urine Color (YELLOW) Urine Appearance (CLEAR) Urine pH (5.0-6.5) Ur Specific [place] (1.010-1.025) Urine Protein (NEGATIVE) mg/dL Urine Glucose (UA) (NORMAL) mg/dL Urine Ketones (NEGATIVE) mg/dL Urine Occult Blood (NEGATIVE) Urine Nitrite (NEGATIVE) Urine Bilirubin (NEGATIVE) Urine Urobilinogen (NEGATIVE) mg/dL Ur Leukocyte Esterase (NEGATIVE) Urine RBC (0-5) Urine WBC (0-5) Ur Squamous Epith Cells (NS,R,O) Urine Bacteria (NS) Urine Mucus (NS) Meds: Medications Discontinued Medications Generic Name Dose Route Start Last Admin Trade Name Freq PRN Reason Stop Dose Admin Meclizine HCl 25 mg 10/29/18 23:54 10/29/18 23:57 Antivert PO 10/29/18 23:55 25 mg ONETIME ONE Administration Potassium Chloride 40 meq 10/29/18 23:54 10/29/18 23:57 Klor-Con M20 PO 10/29/18 23:55 40 meq ONETIME ONE Administration Departure - Departure Time of Disposition: 23:57 Disposition: Home, Self-Care 01 Condition: Good Clinical Impression: Hypokalemia, Hypocalcemia, Arnold-Chiari deformity, Vertigo - Discharge Information Instructions: Hypokalemia, Chiari Malformation Referrals: Bradley Florentino MD [Primary Care Provider] - Forms: ED Department Discharge Additional Instructions: Please f/u with your PMD, take Antivert as recommended, MRI of brain as scheduled this Saturday. Please come back if your symptoms get worse acutely.
[2018-10-29] MEDS ORDERED: Potassium Chloride 20 MEQ Tab.ER PO ONE (23:54)
[2018-10-30 00:09] VITALS: BP 133/68
== END 2018-10-30 00:07 | disposition home or self-care (01) ==
LOC: FB.ED 22:10
DX: Q07.00 Arnold-Chiari syndrome without spina bifida or hydrocephalus (principal); E87.6 Hypokalemia; E83.51 Hypocalcemia; Z88.6 Allergy status to analgesic agent; Z87.891 Personal history of nicotine dependence
CPT/HCPCS: 36415; 70450; 80048; 81001; 83735; 85025; 99284; A9270

== ENCOUNTER 2019-02-26 22:45 | Emergency (ER) | payer OTHER, MEDICARE, MEDICAID ==
--- NOTE | 2019-02-26 22:49 | EDM.PDOC ---
ED HPI GENERAL MEDICAL PROBLEM - General Stated Complaint: LOW SODIUM LEVELS Time Seen by Provider: 02/26/19 22:45 Source of Information: Reports: Patient, Family History Limitations: Reports: No Limitations - History of Present Illness INITIAL COMMENTS - FREE TEXT/NARRATIVE: 33 y.o b f came with her SO to the ED requesting Na and K to be checked, which were low in the past. She stated a swell she feel kind of weak. No SOB or chest pain. She had a thyroid surgery in the past. She did not take her thyroid meds in the past several days because she ran out of her meds. She has an appointment with her PMD today at 1 pm. No N/V/D or any other acute med issue. BP 157/99 RR 18 Pulse ox 99% on RA Pulse 88 Temp 36.8 Onset Date: 02/26/19 Onset Time: 06:00 Duration: Day(s): Location: Reports: Generalized Quality: Reports: Other (feeling tired) Severity: Mild Improves with: Reports: None Worsens with: Reports: None Context: Reports: Other (Her meds were not availabl at [facility]. ) Associated Symptoms: Reports: No Other Symptoms - Related Data Allergies Allergy/AdvReac Type Severity Reaction Status Date / Time hydrocodone [From Vicodin] Allergy Hives Verified 02/26/19 22:53 Home Meds: Home Meds Calcitriol [Rocaltrol] 0.5 mcg PO DAILY 04/30/17 [History] Calcium Carbonate [Calcium] 500 mg PO TID 04/30/17 [History] Levothyroxine 200 mcg PO DAILY 03/21/18 [History] Cholecalciferol (Vitamin D3) [Vitamin D] 1,500 units PO MO 10/29/18 [History] Levothyroxine 50 mcg PO ACBREAKFAST 10/29/18 [History] Past Medical History HEENT History: Reports: Other (See Below) Other HEENT History: undetermined Cardiovascular History: Reports: Hypertension, Other (See Below) Other Cardiovascular History: hypertension with previous NEUROLOGY PHYSICIAN History: Reports: , Spontaneous Other NEUROLOGY PHYSICIAN History: [id number] Musculoskeletal History: Reports: Fracture Other Musculoskeletal History: fx L tibia & kneecap. Neurological History: Reports: Migraines, Seizure Psychiatric History: Reports: Anxiety, Bipolar Endocrine/Metabolic History: Reports: Hypothyroidism, Vitamin D Deficiency Other Endocrine/Metabolic History: hx thyroid CA Oncologic (Cancer) History: Reports: Thyroid - Infectious Disease History Infectious Disease History: Reports: Chicken Pox - Past Surgical History Endocrine Surgical History: Reports: Thyroidectomy Neurological Surgical History: Reports: None Musculoskeletal Surgical History: Reports: None Social & Family History - Family History Family Medical History: Noncontributory - Caffeine Use Caffeine Use: Reports: Coffee, Tea Other Caffeine Use: 1 cup/day ED ROS GENERAL - Review of Systems Review Of Systems: See Below Constitutional: Reports: Weakness HEENT: Reports: No Symptoms Respiratory: Reports: No Symptoms Cardiovascular: Reports: No Symptoms Endocrine: Reports: No Symptoms GI/Abdominal: Reports: No Symptoms : Reports: No Symptoms Musculoskeletal: Reports: No Symptoms Skin: Reports: No Symptoms Neurological: Reports: No Symptoms Psychiatric: Reports: No Symptoms Hematologic/Lymphatic: Reports: No Symptoms Immunologic: Reports: No Symptoms ED EXAM, GENERAL - Physical Exam Exam: See Below Exam Limited By: No Limitations General Appearance: Alert, WD/WN, Mild Distress Eye Exam: Bilateral Eye: Normal Inspection Ears: Normal External Exam Ear Exam: Bilateral Ear: Auricle Normal Nose: Normal Inspection, Normal Mucosa, No Blood Throat/Mouth: Normal Inspection, Normal Lips, Normal Voice, No Airway Compromise Head: Atraumatic, Normocephalic Neck: Normal Inspection, Supple, Non-Tender, Full Range of Motion Respiratory/Chest: No Respiratory Distress, Lungs Clear, Normal Breath Sounds, Chest Non-Tender Cardiovascular: Normal Peripheral Pulses, Regular Rate, Rhythm, No Edema, No Gallop, No Murmur, No Rub Peripheral Pulses: 2+: Brachial (L) GI/Abdominal: Normal Bowel Sounds, Soft, Non-Tender (Female) Exam: Deferred Rectal (Female) Exam: Deferred Back Exam: Normal Inspection, Full Range of Motion Extremities: Normal Inspection, Normal Range of Motion, Non-Tender, Normal Capillary Refill Neurological: Alert, Oriented, CN II-XII Intact, Normal Cognition, Normal Gait Psychiatric: Normal Affect, Normal Mood Skin Exam: Warm, Dry, Intact, Normal Color, No Rash Lymphatic: No Adenopathy Course - Vital Signs Text/Narrative:: 33 y.o b f came with her SO to the ED requesting Na and K to be checked, which were low in the past. She stated a swell she feel kind of weak. No SOB or chest pain. She had a thyroid surgery in the past. She did not take her thyroid meds in the past several days because she ran out of her meds. She has an appointment with her PMD today at 1 pm. No N/V/D or any other acute med issue. BP 157/99 RR 18 Pulse ox 99% on RA Pulse 88 Temp 36.8 PE: WNWD B F in NAD Labs: Ca 6.7 Mg 1.4 TSH 6.47 K 3.6 Na 143 Impression: Hypocalcemia, hypomagnesia, elevated TSH (Hypothyroidism) Tx: Slow MG, Ca gluconate, Levothyroid 250 mg Reexam: Improved Plan: D/C with instructions Last Recorded V/S: Last Vital Signs Temp 36.8 C 02/26/19 22:49 Pulse 79 02/26/19 23:43 Resp 18 02/26/19 23:43 BP 154/97 H 02/26/19 23:43 Pulse Ox 99 02/26/19 23:43 - Orders/Labs/Meds Labs: Laboratory Tests 02/26/19 02/26/19 Range/Units 22:55 22:55 Sodium 143 (135-145) mmol/L Potassium 3.6 (3.5-5.3) mmol/L Chloride 105 D (100-110) mmol/L Carbon Dioxide 26 (21-32) mmol/L BUN 10 (7-18) mg/dL Creatinine 1.0 (0.55-1.02) mg/dL Est Cr Clr Drug Dosing 70.66 mL/min Estimated GFR (MDRD) > 60 (>60) BUN/Creatinine Ratio 10.0 (9-20) Glucose 104 (80-116) mg/dL Calcium 6.7 L (8.6-10.2) mg/dL Magnesium 1.4 L (1.8-2.5) mg/dL TSH, Ultra Sensitive 6.75 H (0.36-3.74) IU/mL Meds: Medications Discontinued Medications Generic Name Dose Route Start Last Admin Trade Name Freq PRN Reason Stop Dose Admin Calcium Carbonate/Glycine 1,000 mg 02/26/19 23:18 02/26/19 23:39 Tums PO 02/26/19 23:19 1,000 mg ONETIME ONE Administration Piperacillin Sod/Tazobactam 50 mls @ 100 mls/hr 02/27/19 01:00 Sod 3.375 gm/ Sodium Chloride IV Q6H TEE Levothyroxine Sodium 250 mcg 02/27/19 23:28 Synthroid PO 02/27/19 23:29 ONETIME ONE Levothyroxine Sodium 250 mcg 02/27/19 23:36 02/26/19 23:41 Levothyroxine PO 02/27/19 23:37 250 mcg ONETIME ONE Administration Levothyroxine Sodium Confirm 02/26/19 23:35 02/26/19 23:42 Levothyroxine Administered 02/26/19 23:36 Not Given Dose 250 mcg .ROUTE .STK-MED ONE Magnesium Chloride 64 mg 02/26/19 23:17 02/26/19 23:39 Mag-64 PO 02/26/19 23:18 64 mg ONETIME STA Administration Departure - Departure Time of Disposition: 23:39 Disposition: Home, Self-Care 01 Condition: Good Clinical Impression: Hypocalcemia, Hypomagnesemia - Discharge Information Instructions: Hypomagnesemia, Hypocalcemia, Adult, Magnesium Salts capsules or tablets, immediate release Referrals: Bradley Florentino MD [Primary Care Provider] - Forms: ED Department Discharge Additional Instructions: Please follow up with your regular MD at 1 pm tomorrow to get the correct prescriptions and further care. Come back if your symptoms get worse acutely
[2019-02-26] MEDS ORDERED: Magnesium Chloride 64 MG Tab.ER PO STA (23:17)
[2019-02-26] MEDS ORDERED: Calcium Carbonate 500 MG Tab.Chew PO ONE (23:18)
[2019-02-26] MEDS ORDERED: Levothyroxine 125 MCG Tab ONE (23:35)
[2019-02-26 23:44] VITALS: BP 154/97; PULSE 79
[2019-02-27] MEDS ORDERED: Piperacillin/Tazobactam 3.375 GM in Sodium Chloride 0.9% 50 ML IV SCH (01:00)
[2019-02-27] MEDS ORDERED: Levothyroxine 100 MCG Tab PO ONE (23:28)
[2019-02-27] MEDS ORDERED: Levothyroxine 125 MCG Tab PO ONE (23:36)
== END 2019-02-26 23:48 | disposition home or self-care (01) ==
LOC: FB.ED 22:45
DX: E83.51 Hypocalcemia (principal); E83.42 Hypomagnesemia; I10 Essential (primary) hypertension; E03.9 Hypothyroidism, unspecified; Z88.5 Allergy status to narcotic agent; Z79.899 Other long term (current) drug therapy; Z85.850 Personal history of malignant neoplasm of thyroid
CPT/HCPCS: 36415; 80048; 83735; 84443; 99284; A9270

== ENCOUNTER 2022-12-05 20:01 | Emergency (ER) | payer MEDICARE, MEDICAID ==
[2022-12-05 20:29] VITALS: PULSE 96
[2022-12-05] MEDS ORDERED: Sodium Chloride 0.9% 1,000 ML IV ONE (20:56)
[2022-12-05] MEDS ORDERED: Prochlorperazine 10 MG/2 ML SDV IVPUSH ONE (20:56)
[2022-12-05] MEDS ORDERED: Ketorolac 30 MG/ML SDV IVPUSH ONE (20:56)
[2022-12-05] MEDS ORDERED: Sodium Chloride 0.9% 10 ML Syringe FLUSH PRN (20:56)
[2022-12-05] MEDS ORDERED: diphenhydrAMINE 50 MG/ML SDV IVPUSH ONE (20:56)
[2022-12-05] MEDS ORDERED: Albuterol 0.083% 2.5 MG/3 ML Neb Soln NEB ONE (21:27)
[2022-12-05 21:34] LABS: BASOPHILS PERCENT AUTO 1.1 % (0.2-1.5); EOSINOPHILS PERCENT AUTO 0.9 % (0.6-8.1); HEMATOCRIT 31.2 % (34.2-48.2); HEMOGLOBIN 9.9 g/dL (11.4-15.5); LYMPHOCYTES ABSOLUTE AUTO 1.4 x10-3/uL (1.0-4.4); LYMPHOCYTES PERCENT AUTO 36.1 % (18.4-52.1); MEAN CORPUSCULAR HEMOGLOBIN 24.2 pg (23.9-33.9); MEAN CORPUSCULAR HGB CONC 31.7 g/dL (31.9-34.8); MEAN CORPUSCULAR VOLUME 76.1 fL (76.7-100.5); MEAN PLATELET VOLUME 7.4 fL (7.1-12.4); MONOCYTES ABSOLUTE AUTO 0.6 x10-3/uL (0.3-1.0); MONOCYTES PERCENT AUTO 16.1 % (4.4-15.7); NEUTROPHILS ABSOLUTE AUTO 1.7 x10-3/uL (1.5-6.3); NEUTROPHILS PERCENT AUTO 45.8 % (30.8-76.2); PLATELET COUNT,PLT 293 x10(3)uL (151-488); RED CELL DISTRIBUTION WIDTH 17.6 % (12.3-16.5); WHITE BLOOD CELL COUNT,WBC 3.8 x10-3/uL (3.0-10.3)
[2022-12-05 21:37] LABS: BLOOD UREA NITROGEN,BUN 12 mg/dL (7-18); BUN/CREATININE RATIO 10.9 (9-20); CALCIUM 7.2 mg/dL (8.6-10.2); CARBON DIOXIDE,CO2 28 mmol/L (21-32); CHLORIDE,CL 101 mmol/L (100-110); CREATININE 1.1 mg/dL (0.55-1.02); EST CRCL DRUG DOSING (CG) 61.79 mL/min; ESTIMATED GFR 66 mL/min (>60); GLUCOSE RANDOM 82 mg/dL (80-116); MAGNESIUM 1.8 mg/dL (1.8-2.5); POTASSIUM,K 3.3 mmol/L (3.5-5.3); SODIUM,NA 138 mmol/L (135-145)
[2022-12-05 22:01] LABS: SEDIMENTATION RATE MANUAL 47 mm/hr (0-20)
[2022-12-05] MEDS ORDERED: Potassium Chloride 20 MEQ Tab.ER PO ONE (22:28)
[2022-12-05] MEDS ORDERED: predniSONE 20 MG Tab PO ONE (22:57)
[2022-12-05] MEDS ORDERED: Azithromycin 500 MG Tab PO ONE (22:57)
[2022-12-05 23:10] VITALS: BP 159/59
== END 2022-12-05 23:21 | disposition home or self-care (01) ==
LOC: FB.ED 20:01
DX: G43.911 Migraine, unspecified, intractable, with status migrainosus (principal); J45.41 Moderate persistent asthma with (acute) exacerbation; J01.90 Acute sinusitis, unspecified; I10 Essential (primary) hypertension; E03.9 Hypothyroidism, unspecified; R70.0 Elevated erythrocyte sedimentation rate; Z88.5 Allergy status to narcotic agent; Z79.899 Other long term (current) drug therapy; Z72.0 Tobacco use; Z20.822 Contact with and (suspected) exposure to COVID-19
CPT/HCPCS: 36415; 70450; 71046; 80048; 83735; 85025; 85651; 86140; 96361; 96374; 96375; 99285; A9270; J0780; J1200; J1885; J7030; J7512; U0002

== ENCOUNTER 2023-04-06 05:50 | Emergency (ER) | payer MEDICARE, MEDICAID ==
[2023-04-06 06:15] VITALS: BP 154/114; PULSE 84
[2023-04-06] MEDS ORDERED: Ketorolac 30 MG/ML SDV IVPUSH ONE (06:57)
[2023-04-06] MEDS ORDERED: Sodium Chloride 0.9% 10 ML Syringe FLUSH PRN (06:57)
[2023-04-06] MEDS ORDERED: Acetaminophen/oxyCODONE 325-5 MG Tab PO STA (06:58)
[2023-04-06] MEDS ORDERED: Prochlorperazine 10 MG/2 ML SDV IVPUSH ONE (06:58)
[2023-04-06 07:17] LABS: BASOPHILS ABSOLUTE AUTO 0.1 x10-3/uL (0.0-0.1); BASOPHILS PERCENT AUTO 1.4 % (0.2-1.5); EOSINOPHILS ABSOLUTE AUTO 0.2 x10-3/uL (0.0-0.8); EOSINOPHILS PERCENT AUTO 3.7 % (0.6-8.1); HEMATOCRIT 28.1 % (34.2-48.2); HEMOGLOBIN 8.9 g/dL (11.4-15.5); LYMPHOCYTES ABSOLUTE AUTO 1.6 x10-3/uL (1.0-4.4); LYMPHOCYTES PERCENT AUTO 34.5 % (18.4-52.1); MEAN CORPUSCULAR HEMOGLOBIN 24.8 pg (23.9-33.9); MEAN CORPUSCULAR HGB CONC 31.7 g/dL (31.9-34.8); MEAN CORPUSCULAR VOLUME 78.2 fL (76.7-100.5); MEAN PLATELET VOLUME 7.3 fL (7.1-12.4); MONOCYTES ABSOLUTE AUTO 0.4 x10-3/uL (0.3-1.0); MONOCYTES PERCENT AUTO 9.4 % (4.4-15.7); NEUTROPHILS ABSOLUTE AUTO 2.3 x10-3/uL (1.5-6.3); PLATELET COUNT,PLT 362 x10(3)uL (151-488); RED BLOOD CELL COUNT 3.59 x10(6)uL (3.60-5.20); RED CELL DISTRIBUTION WIDTH 17.8 % (12.3-16.5); WHITE BLOOD CELL COUNT,WBC 4.5 x10-3/uL (3.0-10.3)
[2023-04-06 07:21] LABS: BLOOD UREA NITROGEN,BUN 16 mg/dL (7-18); BUN/CREATININE RATIO 14.5 (9-20); CALCIUM 7.3 mg/dL (8.6-10.2); CARBON DIOXIDE,CO2 29 mmol/L (21-32); CHLORIDE,CL 106 mmol/L (100-110); CREATININE 1.1 mg/dL (0.55-1.02); EST CRCL DRUG DOSING (CG) 61.79 mL/min; ESTIMATED GFR 66 mL/min (>60); GLUCOSE RANDOM 96 mg/dL (80-116); POTASSIUM,K 3.3 mmol/L (3.5-5.3); SODIUM,NA 144 mmol/L (135-145)
[2023-04-06 07:27] LABS: ALANINE AMINOTRANSFERASE,ALT 20 U/L (12-36); ALBUMIN 3.5 g/dL (3.5-5.2); ALKALINE PHOSPHATASE 59 IU/L (56-112); ASPARTATE AMNIOTRANSFERASE,AST 17 IU/L (5-25); BILIRUBIN TOTAL 0.3 mg/dL (0.1-1.3); PROTEIN TOTAL,TP 7.1 g/dL (6.0-8.0)
[2023-04-06 07:30] LABS: LACTIC ACID 0.7 mmol/L (0.4-2.0)
== END 2023-04-06 09:00 | disposition home or self-care (01) ==
LOC: FB.ED 05:50
DX: G93.2 Benign intracranial hypertension (principal); E87.6 Hypokalemia; R56.9 Unspecified convulsions; I10 Essential (primary) hypertension; E03.9 Hypothyroidism, unspecified; F17.210 Nicotine dependence, cigarettes, uncomplicated; Z88.5 Allergy status to narcotic agent; Z79.899 Other long term (current) drug therapy
CPT/HCPCS: 80053; 83605; 84443; 85025; 96374; 96375; 99284-25; A9270-GY; J0780; J1885; J3490

== ENCOUNTER 2023-05-19 10:27 | Emergency (ER) | payer MEDICARE, MEDICAID ==
[2023-05-19] MEDS ORDERED: Ketorolac 30 MG/ML SDV IVPUSH ONE (10:39)
[2023-05-19] MEDS ORDERED: Ondansetron 4 MG/2 ML SDV IVPUSH ONE (10:39)
[2023-05-19] MEDS ORDERED: Morphine 4 MG/ML VIAL IVPUSH ONE (10:39)
[2023-05-19] MEDS ORDERED: Sodium Chloride 0.9% 1,000 ML IV SCH (10:45)
[2023-05-19 10:55] LABS: BASOPHILS ABSOLUTE AUTO 0.1 x10-3/uL (0.0-0.1); EOSINOPHILS ABSOLUTE AUTO 0.1 x10-3/uL (0.0-0.8); MONOCYTES ABSOLUTE AUTO 0.6 x10-3/uL (0.3-1.0)
[2023-05-19 10:57] LABS: BLOOD UREA NITROGEN,BUN 8 mg/dL (7-18); CALCIUM 8.4 mg/dL (8.6-10.2); CARBON DIOXIDE,CO2 26 mmol/L (21-32); CHLORIDE,CL 104 mmol/L (100-110); CREATININE 0.8 mg/dL (0.55-1.02); ESTIMATED GFR 96 mL/min (>60); GLUCOSE RANDOM 91 mg/dL (80-116); POTASSIUM,K 3.8 mmol/L (3.5-5.3); SODIUM,NA 138 mmol/L (135-145)
[2023-05-19 10:58] LABS: BASOPHILS PERCENT AUTO 1.2 % (0.2-1.5); HEMATOCRIT 34.6 % (34.2-48.2); HEMOGLOBIN 11.2 g/dL (11.4-15.5); MEAN CORPUSCULAR HGB CONC 32.3 g/dL (31.9-34.8); MEAN PLATELET VOLUME 7.7 fL (7.1-12.4); MONOCYTES PERCENT AUTO 7.2 % (4.4-15.7); NEUTROPHILS ABSOLUTE AUTO 5.9 x10-3/uL (1.5-6.3); PLATELET COUNT,PLT 306 x10(3)uL (151-488); WHITE BLOOD CELL COUNT,WBC 8.8 x10-3/uL (3.0-10.3)
[2023-05-19 11:02] LABS: LYMPHOCYTES ABSOLUTE AUTO 2.1 x10-3/uL (1.0-4.4); LYMPHOCYTES PERCENT AUTO 23.5 % (18.4-52.1); MEAN CORPUSCULAR HEMOGLOBIN 26.1 pg (23.9-33.9); NEUTROPHILS PERCENT AUTO 67.1 % (30.8-76.2); RED BLOOD CELL COUNT 4.28 x10(6)uL (3.60-5.20); RED CELL DISTRIBUTION WIDTH 20.7 % (12.3-16.5)
[2023-05-19 11:03] LABS: A/G RATIO 0.7; ALANINE AMINOTRANSFERASE,ALT 18 U/L (12-36); ALKALINE PHOSPHATASE 55 IU/L (56-112); AMYLASE 32 U/L (25-115); ASPARTATE AMNIOTRANSFERASE,AST 15 IU/L (5-25); BILIRUBIN TOTAL 0.3 mg/dL (0.1-1.3); PROTEIN TOTAL,TP 7.2 g/dL (6.0-8.0)
[2023-05-19 11:04] LABS: APPEARANCE,URINE CLEAR (CLEAR); COLOR,URINE YELLOW (YELLOW)
[2023-05-19 11:05] LABS: BACTERIA,URINE FEW (NS); BILIRUBIN,URINE NEGATIVE (NEGATIVE); GLUCOSE,URINE NORMAL (NORMAL); KETONES,URINE NEGATIVE (NEGATIVE); NITRITE,URINE NEGATIVE (NEGATIVE); OCCULT BLOOD,URINE NEGATIVE (NEGATIVE); PROTEIN,URINE NEGATIVE (NEGATIVE); RBC,URINE NOT SEEN (0-5); SQUAMOUS EPITHELIAL CELLS,UR RARE (NS,R,O); UROBILINOGEN,URINE NORMAL (NEGATIVE); WBC,URINE 0-5 (0-5)
[2023-05-19 11:06] LABS: LEUKOCYTE ESTERASE,URINE NEGATIVE (NEGATIVE)
[2023-05-19] MEDS: Sodium Chloride 0.9% 10 ML Syringe FLUSH PRN ×2 (11:32→11:35)
[2023-05-19] MEDS ORDERED: Iopamidol 755 Mg/ML 100 ML Bottle IV ONE (12:02)
[2023-05-19 13:50] VITALS: BP 150/95; PULSE 77
== END 2023-05-19 13:35 | disposition home or self-care (01) ==
LOC: FB.ED 10:27
DX: R10.2 Pelvic and perineal pain (principal); N83.10 Corpus luteum cyst of ovary, unspecified side; I10 Essential (primary) hypertension; J45.909 Unspecified asthma, uncomplicated; Z88.5 Allergy status to narcotic agent
CPT/HCPCS: 36415; 74177; 80053; 81001; 81025; 82150; 83690; 85025; 96361; 96374; 96375; 99283; 99284-25; J1885; J2270; J2405; J3490; J7030; Q9967

== ENCOUNTER 2023-06-17 17:50 | Emergency (ER) | payer MEDICARE, MEDICAID ==
[2023-06-17] MEDS ORDERED: Sodium Chloride 0.9% 10 ML Syringe FLUSH PRN (18:57)
[2023-06-17] MEDS ORDERED: Ketorolac 30 MG/ML SDV IVPUSH ONE (18:59)
[2023-06-17] MEDS ORDERED: Sodium Chloride 0.9% 1,000 ML IV ONE (18:59)
[2023-06-17] MEDS ORDERED: Prochlorperazine 10 MG/2 ML SDV IVPUSH ONE (18:59)
[2023-06-17] MEDS ORDERED: diphenhydrAMINE 50 MG/ML SDV IVPUSH ONE (18:59)
[2023-06-17] MEDS ORDERED: LORazepam 2 MG/ML SDV IVPUSH ONE (19:51)
[2023-06-17 20:14] VITALS: BP 144/104; PULSE 64
[2023-06-17] MEDS ORDERED: Zonisamide 100 MG Cap PO ONE (20:25)
[2023-06-18] MEDS ORDERED: Zonisamide 100 MG Cap PO ONE (18:58)
== END 2023-06-17 20:38 | disposition home or self-care (01) ==
LOC: FB.ED 17:50
DX: R51.9 Headache, unspecified (principal); R56.9 Unspecified convulsions; I10 Essential (primary) hypertension; J45.909 Unspecified asthma, uncomplicated; E03.9 Hypothyroidism, unspecified; F17.210 Nicotine dependence, cigarettes, uncomplicated; Z88.5 Allergy status to narcotic agent; Z79.899 Other long term (current) drug therapy
CPT/HCPCS: 96361; 96374; 96375; 99283-25; 99284; A9270-GY; J0780; J1200; J1885; J2060; J3490; J7030

== ENCOUNTER 2024-03-24 14:06 | Emergency (ER) | payer MEDICARE, MEDICAID ==
[2024-03-24] MEDS ORDERED: Sodium Chloride 0.9% 10 ML Syringe FLUSH PRN (14:23)
[2024-03-24] MEDS: LORazepam 2 MG/ML SDV IVPUSH ONE (14:43)
[2024-03-24] MEDS: Sodium Chloride 0.9% 1,000 ML IV SCH (14:43)
[2024-03-24 15:05] LABS: BASOPHILS ABSOLUTE AUTO 0.1 x10-3/uL (0.0-0.1); BASOPHILS PERCENT AUTO 1.2 % (0.2-1.5); EOSINOPHILS ABSOLUTE AUTO 0.2 x10-3/uL (0.0-0.8); EOSINOPHILS PERCENT AUTO 2.3 % (0.6-8.1); HEMATOCRIT 40.5 % (34.2-48.2); HEMOGLOBIN 13.4 g/dL (11.4-15.5); LYMPHOCYTES ABSOLUTE AUTO 2.3 x10-3/uL (1.0-4.4); LYMPHOCYTES PERCENT AUTO 35.2 % (18.4-52.1); MEAN CORPUSCULAR HEMOGLOBIN 31.5 pg (23.9-33.9); MEAN CORPUSCULAR HGB CONC 33.2 g/dL (31.9-34.8); MEAN PLATELET VOLUME 8.2 fL (7.1-12.4); MONOCYTES ABSOLUTE AUTO 0.4 x10-3/uL (0.3-1.0); MONOCYTES PERCENT AUTO 6.1 % (4.4-15.7); NEUTROPHILS ABSOLUTE AUTO 3.6 x10-3/uL (1.5-6.3); NEUTROPHILS PERCENT AUTO 55.2 % (30.8-76.2); PLATELET COUNT,PLT 362 x10(3)uL (151-488); RED BLOOD CELL COUNT 4.26 x10(6)uL (3.60-5.20); RED CELL DISTRIBUTION WIDTH 14.6 % (12.3-16.5); WHITE BLOOD CELL COUNT,WBC 6.5 x10-3/uL (3.0-10.3)
[2024-03-24 15:07] LABS: BLOOD UREA NITROGEN,BUN 10 mg/dL (7-18); BUN/CREATININE RATIO 9.1 (9-20); CALCIUM 7.8 mg/dL (8.6-10.2); CARBON DIOXIDE,CO2 25 mmol/L (21-32); CHLORIDE,CL 100 mmol/L (100-110); CREATININE 1.1 mg/dL (0.55-1.02); ESTIMATED GFR 65 mL/min (>60); GLUCOSE RANDOM 129 mg/dL (80-116); POTASSIUM,K 3.6 mmol/L (3.5-5.3); SODIUM,NA 140 mmol/L (135-145)
[2024-03-24 15:13] LABS: A/G RATIO 1.1; ALANINE AMINOTRANSFERASE,ALT 13 U/L (12-36); ALBUMIN 4.2 g/dL (3.5-5.2); ALKALINE PHOSPHATASE 59 IU/L (56-112); ASPARTATE AMNIOTRANSFERASE,AST 12 IU/L (5-25); BILIRUBIN TOTAL 0.3 mg/dL (0.1-1.3); MAGNESIUM 1.7 mg/dL (1.8-2.5)
[2024-03-24] MEDS: Ketorolac 30 MG/ML SDV IVPUSH ONE (15:19)
[2024-03-24] MEDS: Prochlorperazine 10 MG/2 ML SDV IVPUSH ONE (15:20)
[2024-03-24] MEDS: diphenhydrAMINE 50 MG/ML SDV IVPUSH ONE (15:20)
[2024-03-24 15:27] LABS: AMPHETAMINES SCREEN, URINE NEGATIVE (NEGATIVE); BARBITURATE SCREEN,URINE NEGATIVE (NEGATIVE); BENZODIAZEPINES SCREEN,URINE NEGATIVE (NEGATIVE); BUPRENORPHINE SCREEN,URINE NEGATIVE (NEGATIVE); METHADONE SCREEN, URINE NEGATIVE (NEGATIVE); METHAMPHETAMINE SCREEN, URINE NEGATIVE (NEGATIVE); OXYCODONE SCREEN,URINE NEGATIVE (NEGATIVE); THC SCREEN,URINE POSITIVE (NEGATIVE)
[2024-03-24 16:06] VITALS: BP 144/94; PULSE 67
== END 2024-03-24 17:05 | disposition home or self-care (01) ==
LOC: FB.ED 14:06
DX: G40.909 Epilepsy, unspecified, not intractable, without status epilepticus (principal); E86.0 Dehydration; I10 Essential (primary) hypertension; E03.9 Hypothyroidism, unspecified; F17.200 Nicotine dependence, unspecified, uncomplicated; Z79.890 Hormone replacement therapy; Z79.899 Other long term (current) drug therapy; Z88.5 Allergy status to narcotic agent
CPT/HCPCS: 36415; 80053; 80307; 81025; 83735; 85025; 96361; 96374; 96375; 99284; J0780; J1200; J1885; J2060; J7030

== ENCOUNTER 2024-09-08 16:13 | Emergency (ER) | payer MEDICARE, MEDICAID ==
[2024-09-08] MEDS: LORazepam 2 MG/ML SDV IVPUSH ONE ×3 (16:43→22:07)
[2024-09-08 16:54] LABS: HEMATOCRIT 38.8 % (34.2-48.2); HEMOGLOBIN 12.8 g/dL (11.4-15.5); MEAN CORPUSCULAR HEMOGLOBIN 31.6 pg (23.9-33.9); MEAN CORPUSCULAR HGB CONC 32.9 g/dL (31.9-34.8); MEAN CORPUSCULAR VOLUME 96.1 fL (76.7-100.5); MEAN PLATELET VOLUME 7.5 fL (7.1-12.4); PLATELET COUNT,PLT 244 x10(3)uL (151-488); RED BLOOD CELL COUNT 4.03 x10(6)uL (3.60-5.20); WHITE BLOOD CELL COUNT,WBC 7.2 x10-3/uL (3.0-10.3)
[2024-09-08 17:04] LABS: BAND PERCENT MAN 3 % (0-6); EOSINOPHILS PERCENT MAN 1 % (0-5); LYMPHOCYTES PERCENT MAN 9 % (13-37); MONOCYTES PERCENT MAN 6 % (4-12); SEG NEUTROPHILS PERCENT MAN 81 % (46-82)
[2024-09-08 17:06] LABS: BLOOD UREA NITROGEN,BUN 7 mg/dL (7-18); BUN/CREATININE RATIO 5.4 (9-20); CALCIUM 7.6 mg/dL (8.6-10.2); CARBON DIOXIDE,CO2 19 mmol/L (21-32); CHLORIDE,CL 99 mmol/L (100-110); CREATININE 1.3 mg/dL (0.55-1.02); ESTIMATED GFR 53 mL/min (>60); GLUCOSE RANDOM 114 mg/dL (80-116); POTASSIUM,K 3.4 mmol/L (3.5-5.3); SODIUM,NA 137 mmol/L (135-145)
[2024-09-08 17:12] LABS: ALANINE AMINOTRANSFERASE,ALT 13 U/L (12-36); ALBUMIN 3.8 g/dL (3.5-5.2); ALKALINE PHOSPHATASE 56 IU/L (56-112); ASPARTATE AMNIOTRANSFERASE,AST 19 IU/L (5-25); BILIRUBIN TOTAL 0.5 mg/dL (0.1-1.3); MAGNESIUM 1.7 mg/dL (1.8-2.5); PROTEIN TOTAL,TP 7.7 g/dL (6.0-8.0)
[2024-09-08] MEDS: Sodium Chloride 0.9% 1,000 ML IV ONE (18:26)
[2024-09-08] MEDS ORDERED: Ampicillin/Sulbactam Na 3 GM in Sodium Chloride 0.9% 100 ML IV ONE (19:44)
[2024-09-08] MEDS: Metoclopramide 10 MG/2 ML SDV IVPUSH ONE (19:46)
[2024-09-08] MEDS: Ketorolac 30 MG/ML SDV IVPUSH ONE (19:46)
[2024-09-08] MEDS ORDERED: Fosphenytoin 500 MG.PE in Sodium Chloride 0.9% 50 ML IV ONE (20:06)
[2024-09-08] MEDS ORDERED: Fosphenytoin 1,000 MG.PE in Sodium Chloride 0.9% 50 ML IV ONE (20:06)
[2024-09-08] MEDS: Ampicillin/Sulbactam Na 3 GM in Sodium Chloride 0.9% 100 ML IV ONE (20:06)
[2024-09-08] MEDS: Sodium Chloride 0.9% 10 ML Syringe FLUSH PRN (20:22)
[2024-09-08] MEDS: Fosphenytoin 1,500 MG.PE in Sodium Chloride 0.9% 50 ML IV ONE (20:47)
[2024-09-08] MEDS: Sodium Chloride 0.9% 1,000 ML IV SCH (20:52)
[2024-09-08 21:16] VITALS: BP 135/78; PULSE 83
== END 2024-09-08 22:30 ==
LOC: FB.ED 16:13
DX: G40.901 Epilepsy, unspecified, not intractable, with status epilepticus (principal); J69.0 Pneumonitis due to inhalation of food and vomit; I10 Essential (primary) hypertension; J45.909 Unspecified asthma, uncomplicated; E03.9 Hypothyroidism, unspecified; F17.200 Nicotine dependence, unspecified, uncomplicated; Z88.5 Allergy status to narcotic agent; Z79.890 Hormone replacement therapy; Z79.899 Other long term (current) drug therapy
CPT/HCPCS: 36415; 70450; 71045; 80053; 83735; 85025; 86140; 87428; 96361; 96365; 96368; 96375; 96376; 99285; J0295; J1885; J2060; J2765; Q2009

== ENCOUNTER 2024-09-15 12:39 | Emergency (ER) | payer MEDICAID ==
[2024-09-15] MEDS ORDERED: Sodium Chloride 0.9% 10 ML Syringe FLUSH PRN (13:14)
[2024-09-15] MEDS: Ketorolac 30 MG/ML SDV IVPUSH ONE (13:23)
[2024-09-15] MEDS: methylPREDNISolone Sodium Succinate 125 MG/2 ML SDV IVPUSH ONE (13:28)
[2024-09-15] MEDS: diphenhydrAMINE 50 MG/ML SDV IVPUSH ONE (13:28)
[2024-09-15 14:24] VITALS: BP 119/79; PULSE 90
== END 2024-09-15 14:20 | disposition home or self-care (01) ==
LOC: FB.ED 12:39
DX: G93.5 Compression of brain (principal); I10 Essential (primary) hypertension; J45.909 Unspecified asthma, uncomplicated; F17.210 Nicotine dependence, cigarettes, uncomplicated; E03.9 Hypothyroidism, unspecified; Z88.5 Allergy status to narcotic agent; Z79.890 Hormone replacement therapy
CPT/HCPCS: 96374; 96375; 99283; J1200; J1885; J2919